=== PATIENT | female | born 1945 | race Caucasian/White ===

== ENCOUNTER → 2021-02-21 | Outpatient (CLI) | payer OTHER ==
[~2021-02-21] MED LIST: ATORVASTATIN CA20 MG PO; BRILINTA 90 MG90 MG PO; COREG6.25 MG PO; COZAAR 50MG TAB50 MG PO; COZAAR100 MG PO; ECOTRIN81 MG PO; GLUCOPHAGE1000 MG PO; GLUCOTROL 10 MG10 MG PO; HUMALOG 10100 UNITS/ SC; LABETALOL HCL200 MG PO; LANTUS INS100 UTS/M1 SC; LANTUS SOL100 UNIT/1 SQ; LIPITOR40 MG PO; LOVAZA1 GM PO; MICROZIDE12.5 MG PO; NORVASC10 MG PO; OMEPRAZOLE20 MG PO; PRINIVIL10 MG PO; SYNTHROID150 MCG PO; TOPAMAX100 MG PO; VITAMIN D250000 UNIT PO
== END ==
LOC: HEART 5 08:33
DX: R06.02 Shortness of breath (principal); R00.2 Palpitations; R07.9 Chest pain, unspecified; I11.0 Hypertensive heart disease with heart failure; I50.9 Heart failure, unspecified; I48.0 Paroxysmal atrial fibrillation; E78.49 Other hyperlipidemia; I25.5 Ischemic cardiomyopathy; J98.11 Atelectasis
CPT/HCPCS: 71046; 94010

== ENCOUNTER 2021-09-20 15:47 | Observation (INO) | payer OTHER ==
[~2021-09-20] VITALS: Ht 165.1 cm; Wt 70.3 kg
[~2021-09-20 15:47] MED LIST changes: +SYNTHROID100 MCG PO; -SYNTHROID150 MCG PO; +VITAMIN D21250 MCG PO; -VITAMIN D250000 UNIT PO
[2021-09-20 16:18] LABS: HEMOGLOBIN 11.5 gm/dl (12.3-15.3); RED BLOOD COUNT 3.71 M/UL (4.00-5.10); WHITE BLOOD COUNT 7.3 K/UL (4.5-11.0)
[2021-09-21 05:03] LABS: HEMOGLOBIN 11.1 gm/dl (12.3-15.3); RED BLOOD COUNT 3.61 M/UL (4.00-5.10); WHITE BLOOD COUNT 7.6 K/UL (4.5-11.0)
[2021-09-21] MEDS ORDERED: ATORVASTATIN CA20 MG PO (11:41)
[2021-09-21] MEDS ORDERED: LOSARTAN POTASS25 MG PO (11:45)
[2021-09-21] MEDS ORDERED: PROAIR HFA8.5 GM INH (11:46)
[2021-09-21] MEDS ORDERED: LABETALOL HCL200 MG PO (11:46)
[2021-09-21] MEDS ORDERED: CLOPIDOGREL75 MG PO (11:47)
[2021-09-21] MEDS ORDERED: AMLODIPINE BESY10 MG PO (11:47)
[2021-09-21] MEDS ORDERED: GEMFIBROZIL600 MG PO (11:47)
[2021-09-21] MEDS ORDERED: NOVOLOG 10100 UNITS1 SQ (11:48)
[2021-09-21] MEDS ORDERED: CEFUROXIME500 MG PO (14:47)
== END 2021-09-21 16:17 | disposition home or self-care (01) ==
LOC: ER1 15:47 → CDU 18:51 → CCU 09-21 04:44
PROVIDERS: Nurse Practitioner; ADMIT Internal Medicine
DX: N39.0 Urinary tract infection, site not specified (principal); R40.4 Transient alteration of awareness; Z20.822 Contact with and (suspected) exposure to COVID-19; E11.22 Type 2 diabetes mellitus with diabetic chronic kidney disease; I12.0 Hypertensive chronic kidney disease with stage 5 chronic kidney disease or end stage renal disease; N18.6 End stage renal disease; J44.9 Chronic obstructive pulmonary disease, unspecified; K21.9 Gastro-esophageal reflux disease without esophagitis; E03.9 Hypothyroidism, unspecified; E78.5 Hyperlipidemia, unspecified; Z99.2 Dependence on renal dialysis; I25.2 Old myocardial infarction; Z79.4 Long term (current) use of insulin; Z79.02 Long term (current) use of antithrombotics/antiplatelets; Z79.82 Long term (current) use of aspirin; Z79.899 Other long term (current) drug therapy; Z86.73 Personal history of transient ischemic attack (TIA), and cerebral infarction without residual deficits; Z87.891 Personal history of nicotine dependence; Z88.5 Allergy status to narcotic agent; Z95.5 Presence of coronary angioplasty implant and graft
CPT/HCPCS: 0240U; 70450; 71045; 80048; 80053; 81001; 82962; 83735; 85025; 87040; 87077; 87086; 87186; 93005; 96374; 99285; G0378; J0696

== ENCOUNTER 2021-12-23 15:43 | Inpatient (IN) | payer OTHER ==
[~2021-12-23] VITALS: Ht 167.6 cm; Wt 91.1 kg
[~2021-12-23 15:43] MED LIST changes: +AMLODIPINE BESY10 MG PO; +CEFUROXIME500 MG PO; +CLOPIDOGREL75 MG PO; +ERTAPENEM1 GM IV; +GEMFIBROZIL600 MG PO; +LOSARTAN POTASS25 MG PO; +MUPIROCIN22 GM TOP; +NOVOLOG 10100 UNITS1 SQ; +PROAIR HFA8.5 GM INH; -SYNTHROID100 MCG PO; +SYNTHROID175 MCG PO; -VITAMIN D21250 MCG PO
[2021-12-23 21:10] LABS: RED BLOOD COUNT 4.26 M/UL (4.00-5.10); WHITE BLOOD COUNT 8.8 K/UL (4.5-11.0)
[2021-12-24 06:24] LABS: HEMOGLOBIN 11.6 gm/dl (12.3-15.3); RED BLOOD COUNT 3.88 M/UL (4.00-5.10); WHITE BLOOD COUNT 7.5 K/UL (4.5-11.0)
[2021-12-24] MEDS ORDERED: FOLIC ACID1 MG PO (12:39)
[2021-12-24] MEDS ORDERED: SODIUM BICARBO650 MG PO (12:41)
[2021-12-24] MEDS ORDERED: TORSEMIDE100 MG PO (12:42)
[2021-12-24] MEDS ORDERED: CLONAZEPAM1 MG PO (12:44)
[2021-12-24] MEDS ORDERED: OMEPRAZOLE20 MG PO (12:49)
[2021-12-24] MEDS ORDERED: HYDROCODON-ACE1 EAC2 PO (12:50)
[2021-12-25 07:58] LABS: HEMOGLOBIN 11.6 gm/dl (12.3-15.3); RED BLOOD COUNT 3.92 M/UL (4.00-5.10); WHITE BLOOD COUNT 8.1 K/UL (4.5-11.0)
[2021-12-26 08:58] LABS: HEMOGLOBIN 12.2 gm/dl (12.3-15.3); RED BLOOD COUNT 4.04 M/UL (4.00-5.10); WHITE BLOOD COUNT 8.9 K/UL (4.5-11.0)
[2021-12-28 01:38] LABS: HEMOGLOBIN 12.4 gm/dl (12.3-15.3); RED BLOOD COUNT 4.08 M/UL (4.00-5.10); WHITE BLOOD COUNT 11.5 K/UL (4.5-11.0)
[2021-12-29 02:45] LABS: RED BLOOD COUNT 3.99 M/UL (4.00-5.10); WHITE BLOOD COUNT 10.7 K/UL (4.5-11.0)
--- NOTE | 2021-12-29 12:33 | NUR ---
CRITICAL LAB VALUE [facility] OF 9.[address] ROSAS AT [id number]
[2021-12-30 03:50] LABS: HEMOGLOBIN 11.9 gm/dl (12.3-15.3); RED BLOOD COUNT 4.01 M/UL (4.00-5.10); WHITE BLOOD COUNT 10.8 K/UL (4.5-11.0)
--- NOTE | 2021-12-31 07:16 | NUR ---
PATINENTS BGL LEVEL WAS 68 AND HAS BEEN NPO, PROVIDER MADE AWARE AND STATED "IT IS OKAY TO ADDRESS WITH PATIENTS PRIMARY'.
[2021-12-31 12:21] LABS: HBSAG SCREEN Negative (Negative); HCV AB <0.1 (0.0-0.9); HEP A AB, IGM Negative (Negative); HEP B CORE AB, IGM Negative (Negative)
[2022-01-01 06:23] LABS: HEMOGLOBIN 10.2 gm/dl (12.3-15.3)
[2022-01-01 06:24] LABS: RED BLOOD COUNT 3.36 M/UL (4.00-5.10); WHITE BLOOD COUNT 7.7 K/UL (4.5-11.0)
[2022-01-03 07:00] LABS: HEMOGLOBIN 9.8 gm/dl (12.3-15.3); RED BLOOD COUNT 3.34 M/UL (4.00-5.10); WHITE BLOOD COUNT 7.4 K/UL (4.5-11.0)
--- NOTE | 2022-01-03 18:05 | NUR ---
PATIENT NOTED TO BE AGITATED AND COMBATIVE. PATIENT REMOVED IV AND SLEEVE SEWER. DR MEDRANO MADE AWARE. WILL ATTEMPT TO RE APPLY TELEMETRY AND REINSERT IV WHEN PATIENT BECOMES CALM.
[2022-01-07] MEDS ORDERED: CLONAZEPAM1 MG PO (18:11)
[2022-01-07] MEDS ORDERED: OMEPRAZOLE20 MG PO (18:11)
[2022-01-07] MEDS ORDERED: ATORVASTATIN CA40 MG PO (18:11)
[2022-01-07] MEDS ORDERED: HYDROCODON-ACE1 EAC2 PO (18:11)
[2022-01-08 03:17] LABS: HEMOGLOBIN 10.6 gm/dl (12.3-15.3); RED BLOOD COUNT 3.51 M/UL (4.00-5.10); WHITE BLOOD COUNT 11.6 K/UL (4.5-11.0)
--- NOTE | 2022-01-09 12:29 | NUR ---
NOTIFIED GUIDO OF PT'S FALL LAST NIGHT
[2022-01-10] MEDS ORDERED: VITAMIN D21250 MCG PO (00:32)
[2022-01-10] MEDS ORDERED: DOCUSATE CALCI240 MG PO (12:39)
[2022-01-10] MEDS ORDERED: ACETAMINOPHEN325 MG PO (12:44)
[2022-01-10] MEDS ORDERED: MAALOX PLUS 3030 ML PO (16:04)
[2022-01-10] MEDS ORDERED: LACTULOSE20 GM/30 M PO (16:04)
[2022-01-10] MEDS ORDERED: BISACODYL10 MG PR (16:07)
[2022-01-10] MEDS ORDERED: LOPERAMIDE2 M1 PO (16:09)
[2022-01-10] MEDS ORDERED: ALBUTEROL2.5 MG/3 M INH (16:11)
[2022-01-10] MEDS ORDERED: OMEPRAZOLE20 MG PO (16:16)
== END 2022-01-09 16:08 | DRG 871 ==
LOC: ER1 15:43 → CDU 21:47 → MED SURG 4 21:47
PROVIDERS: Internal Medicine; Internal Medicine Nephrology; Nurse Practitioner; ADMIT Internal Medicine
DX: A41.51 Sepsis due to Escherichia coli [E. coli] (principal); N18.6 End stage renal disease; G93.41 Metabolic encephalopathy; Z20.822 Contact with and (suspected) exposure to COVID-19; I63.9 Cerebral infarction, unspecified; M62.82 Rhabdomyolysis; E87.1 Hypo-osmolality and hyponatremia; N39.0 Urinary tract infection, site not specified; F03.90 Unspecified dementia, unspecified severity, without behavioral disturbance, psychotic disturbance, mood disturbance, and anxiety; E86.0 Dehydration; J44.9 Chronic obstructive pulmonary disease, unspecified; I12.9 Hypertensive chronic kidney disease with stage 1 through stage 4 chronic kidney disease, or unspecified chronic kidney disease; E11.22 Type 2 diabetes mellitus with diabetic chronic kidney disease; E78.5 Hyperlipidemia, unspecified; M47.892 Other spondylosis, cervical region; E03.9 Hypothyroidism, unspecified; E87.6 Hypokalemia; K21.9 Gastro-esophageal reflux disease without esophagitis; S80.01XA Contusion of right knee, initial encounter; E11.649 Type 2 diabetes mellitus with hypoglycemia without coma; I25.10 Atherosclerotic heart disease of native coronary artery without angina pectoris; S00.83XA Contusion of other part of head, initial encounter; W18.30XA Fall on same level, unspecified, initial encounter; R13.10 Dysphagia, unspecified; R62.7 Adult failure to thrive; Y92.009 Unspecified place in unspecified non-institutional (private) residence as the place of occurrence of the external cause; Z99.2 Dependence on renal dialysis; Z95.5 Presence of coronary angioplasty implant and graft; Z88.8 Allergy status to other drugs, medicaments and biological substances; Z82.3 Family history of stroke; Z82.49 Family history of ischemic heart disease and other diseases of the circulatory system; Z79.01 Long term (current) use of anticoagulants; Z79.82 Long term (current) use of aspirin
CPT/HCPCS: 0240U; 36415; 36600; 51701; 70450; 70486; 70551; 71045; 72125; 73030; 73090; 80048; 80053; 80074; 80307; 81001; 82140; 82550; 82553; 82803; 82962; 83036; 83605; 83735; 83874; 83880; 84100; 84484; 85025; 85027; 86140; 87040; 87086; 90937; 92526; 92610; 93005; 96365; 97110; 97110-GP-CQ; 97162; 97166; 97530-GP-CQ; 99285; G0378; J0360; J1335; J1644; J2060; J2543; J7030

== ENCOUNTER 2022-01-10 11:37 | Observation (INO) | payer OTHER ==
[~2022-01-10] VITALS: Ht 165.1 cm; Wt 58.1 kg
[~2022-01-10 11:37] MED LIST changes: +ATORVASTATIN CA40 MG PO; +CLONAZEPAM1 MG PO; +FOLIC ACID1 MG PO; +HYDROCODON-ACE1 EAC2 PO; +SODIUM BICARBO650 MG PO; +TORSEMIDE100 MG PO; +VITAMIN D21250 MCG PO
[2022-01-10 12:21] LABS: HEMOGLOBIN 11.3 gm/dl (12.3-15.3); RED BLOOD COUNT 3.69 M/UL (4.00-5.10)
[2022-01-10 12:22] LABS: WHITE BLOOD COUNT 8.1 K/UL (4.5-11.0)
[2022-01-10] MEDS ORDERED: DOCUSATE CALCI240 MG PO (12:39)
[2022-01-10] MEDS ORDERED: ACETAMINOPHEN325 MG PO (12:44)
[2022-01-10 12:47] LABS: BUN/CREATININE RATIO 7 (0-10)
[2022-01-10] MEDS ORDERED: LACTULOSE20 GM/30 M PO (16:04)
[2022-01-10] MEDS ORDERED: MAALOX PLUS 3030 ML PO (16:04)
[2022-01-10] MEDS ORDERED: BISACODYL10 MG PR (16:07)
[2022-01-10] MEDS ORDERED: LOPERAMIDE2 M1 PO (16:09)
[2022-01-10] MEDS ORDERED: ALBUTEROL2.5 MG/3 M INH (16:11)
[2022-01-10] MEDS ORDERED: OMEPRAZOLE20 MG PO (16:16)
[2022-01-11 05:05] LABS: HEMOGLOBIN 10.6 gm/dl (12.3-15.3); RED BLOOD COUNT 3.45 M/UL (4.00-5.10)
[2022-01-11 05:06] LABS: WHITE BLOOD COUNT 10.6 K/UL (4.5-11.0)
[2022-01-13] MEDS ORDERED: AMLODIPINE BESYL5 MG PO (14:58)
[2022-01-14 07:03] LABS: HEMOGLOBIN 8.8 gm/dl (12.3-15.3); RED BLOOD COUNT 2.89 M/UL (4.00-5.10); WHITE BLOOD COUNT 12.8 K/UL (4.5-11.0)
[2022-01-15 06:08] LABS: HEMOGLOBIN 8.7 gm/dl (12.3-15.3); RED BLOOD COUNT 2.8 M/UL (4.00-5.10); WHITE BLOOD COUNT 11.5 K/UL (4.5-11.0)
== END 2022-01-15 15:15 ==
LOC: ER1 11:37 → MED SURG 4 15:12 → CDU 15:12 → CCU 15:12 → CDU 15:12 → CCU 17:59 → MED SURG 4 01-13 15:33
PROVIDERS: Emergency Medicine; Internal Medicine; Physician Assistant; ADMIT Internal Medicine
DX: I95.1 Orthostatic hypotension (principal); I12.0 Hypertensive chronic kidney disease with stage 5 chronic kidney disease or end stage renal disease; E11.22 Type 2 diabetes mellitus with diabetic chronic kidney disease; N18.6 End stage renal disease; I25.10 Atherosclerotic heart disease of native coronary artery without angina pectoris; R00.1 Bradycardia, unspecified; E78.5 Hyperlipidemia, unspecified; J44.9 Chronic obstructive pulmonary disease, unspecified; E03.9 Hypothyroidism, unspecified; K21.9 Gastro-esophageal reflux disease without esophagitis; F03.90 Unspecified dementia, unspecified severity, without behavioral disturbance, psychotic disturbance, mood disturbance, and anxiety; D64.9 Anemia, unspecified; N25.81 Secondary hyperparathyroidism of renal origin; Z86.73 Personal history of transient ischemic attack (TIA), and cerebral infarction without residual deficits; Z99.2 Dependence on renal dialysis; Z98.61 Coronary angioplasty status; Z88.5 Allergy status to narcotic agent; Z79.02 Long term (current) use of antithrombotics/antiplatelets; Z79.82 Long term (current) use of aspirin; Z20.822 Contact with and (suspected) exposure to COVID-19
CPT/HCPCS: 36415; 70450; 70486; 71045; 80048; 80053; 82550; 82553; 82728; 82962; 83540; 83550; 83735; 84132; 84484; 85025; 85027; 87040; 90937; 93005; 94760; 97110; 97116-GP-CQ; 97162; 97166; 97530-GP-CQ; 99285; G0378; J0360; U0002

== ENCOUNTER 2022-04-16 10:36 | Inpatient (IN) | payer OTHER ==
[~2022-04-16] VITALS: Ht 165.1 cm; Wt 62.6 kg
[~2022-04-16 10:36] MED LIST changes: +ACETAMINOPHEN325 MG PO; +ALBUTEROL2.5 MG/3 M INH; +AMLODIPINE BESYL5 MG PO; +BISACODYL10 MG PR; +DOCUSATE CALCI240 MG PO; +LACTULOSE20 GM/30 M PO; +LOPERAMIDE2 M1 PO; +MAALOX PLUS 3030 ML PO
[2022-04-16 10:58] LABS: HEMOGLOBIN 12.7 gm/dl (12.3-15.3); RED BLOOD COUNT 4.02 M/UL (4.00-5.10); WHITE BLOOD COUNT 13.6 K/UL (4.5-11.0)
[2022-04-16] MEDS ORDERED: HYDROCODON-ACE1 EAC2 PO (15:54)
[2022-04-16] MEDS ORDERED: TRANDATE 200 M200 MG PO (15:55)
[2022-04-16] MEDS ORDERED: CLONAZEPAM1 MG PO (15:57)
[2022-04-16 20:20] LABS: HEMOGLOBIN 11.3 gm/dl (12.3-15.3); RED BLOOD COUNT 3.71 M/UL (4.00-5.10); WHITE BLOOD COUNT 10.1 K/UL (4.5-11.0)
[2022-04-17 03:57] LABS: CANDIDA ALBICANS Not Detected (Negative); CANDIDA KRUSEI Not Detected (Negative); CANDIDA TROPICALIS Not Detected (Negative); ESCHERICHIA COLI Not Detected (Negative); HAEMOPHILUS INFLUENZAE Not Detected (Negative); KLEBSIELLA OXYTOCA Not Detected (Negative); KLEBSIELLA PNEUMONIAE Not Detected (Negative); KPC-CARBAPENEM-RESISTANCE GENE Not Detected (Negative); PROTEUS Not Detected (Negative); PSEUDOMONAS AERUGINOSA Not Detected (Negative); SERRATIA MARCESANS Not Detected (Negative); STAPHYLOCOCCUS AUREUS Not Detected (Negative); STREP AGALACTIAE (GROUP B) Not Detected (Negative); STREP PYOGENES (GROUP A) Not Detected (Negative); STREPTOCOCCUS Not Detected (Negative); vanA/B (VANCOMYCIN RESIST GENE Not Detected (Negative)
[2022-04-17 05:23] LABS: STAPHYLOCOCCUS DETECTED (Negative)
== END 2022-04-16 20:45 | disposition short-term general hospital (02) | DRG 246 ==
LOC: ER1 10:36 → CDU 13:24 → CCU 13:24
PROVIDERS: Emergency Medicine; Internal Medicine Interventional Cardiology; ADMIT Internal Medicine Cardiovascular Disease
PROC: 027035Z Dilation of Coronary Artery, One Artery with Two Drug-eluting Intraluminal Devices, Percutaneous Approach (ICD-10-PCS; principal; 2022-04-16)
DX: I21.09 ST elevation (STEMI) myocardial infarction involving other coronary artery of anterior wall (principal); J69.0 Pneumonitis due to inhalation of food and vomit; N18.6 End stage renal disease; R57.0 Cardiogenic shock; I12.0 Hypertensive chronic kidney disease with stage 5 chronic kidney disease or end stage renal disease; G93.49 Other encephalopathy; Q21.0 Ventricular septal defect; I71.4 Abdominal aortic aneurysm, without rupture; E03.9 Hypothyroidism, unspecified; J44.9 Chronic obstructive pulmonary disease, unspecified; E78.5 Hyperlipidemia, unspecified; M51.36 Other intervertebral disc degeneration, lumbar region; E11.22 Type 2 diabetes mellitus with diabetic chronic kidney disease; K21.9 Gastro-esophageal reflux disease without esophagitis; F03.90 Unspecified dementia, unspecified severity, without behavioral disturbance, psychotic disturbance, mood disturbance, and anxiety; Z95.5 Presence of coronary angioplasty implant and graft; Z86.73 Personal history of transient ischemic attack (TIA), and cerebral infarction without residual deficits; Z79.4 Long term (current) use of insulin; I25.2 Old myocardial infarction; Z99.2 Dependence on renal dialysis; Z82.3 Family history of stroke; Z88.8 Allergy status to other drugs, medicaments and biological substances; Z87.891 Personal history of nicotine dependence
CPT/HCPCS: ECHO; 36415; 70450; 71045; 80048; 80053; 81001; 82550; 82553; 82803; 82962; 83605; 83880; 84484; 85025; 85027; 85347; 85610; 85730; 87040; 87150; 93306; 99285; C1725; C1769; C1874; C1887; J0461; J1265; J1644; J2250; J2370; J2405; J2543; J3010; J3246; J7040; Q9965; U0002